=== PATIENT | male | born 1995 | race Caucasian/White ===

== ENCOUNTER 2016-09-13 02:41 | Emergency (ER) | payer MEDICAID, OTHER ==
[2016-09-13] MEDS ORDERED: TDaP 0.5 ML VIAL IM.VACC ONE (02:54)
[2016-09-13] MEDS ORDERED: PROPARACAINE 0.5% OP SOLN ONE (02:54)
== END 2016-09-13 03:27 | disposition home or self-care (01) ==
LOC: ER 02:41
DX: H16.133 Photokeratitis, bilateral (principal); Z23 Encounter for immunization
CPT/HCPCS: 90471